=== PATIENT | female | born 1975 | race Hispanic/Latino ===

== ENCOUNTER 2025-09-26 13:35 | Emergency (ER) | payer OTHER, BC ==
[~2025-09-26] VITALS: Ht 152.4 cm; Wt 47.6 kg
--- NOTE | 2025-09-26 14:10 | NUR ---
PATIENT TAKEN TO CT BY SOLE ASSESSOR.
--- NOTE | 2025-09-26 14:27 | NUR ---
PATIENT RETURNED FROM CT.
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
[2025-09-26 15:37] VITALS: BP 136/83; PULSE 80; RESP 17; TEMP 98.8; O2SAT 95
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
[2025-09-26] MEDS ORDERED: METH-662 PO (15:53)
[2025-09-26] MEDS ORDERED: KETO10TA2 PO (15:53)
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
== END 2025-09-26 16:12 | disposition home or self-care (01) ==
LOC: EDH 13:35
DX: S16.1XXA Strain of muscle, fascia and tendon at neck level, initial encounter (principal); S39.012A Strain of muscle, fascia and tendon of lower back, initial encounter; E11.9 Type 2 diabetes mellitus without complications; I10 Essential (primary) hypertension; Z90.49 Acquired absence of other specified parts of digestive tract; Z98.890 Other specified postprocedural states; V89.2XXA Person injured in unspecified motor-vehicle accident, traffic, initial encounter; Y93.89 Activity, other specified; Y92.410 Unspecified street and highway as the place of occurrence of the external cause; Y99.8 Other external cause status
CPT/HCPCS: 70450; 72125; 72131; 99284